=== PATIENT | female | born 2000 | race Caucasian/White ===

== ENCOUNTER 2021-02-21 01:19 | Emergency (ER) | payer OTHER, BC ==
[2021-02-21 01:29] VITALS: BP 133/83; PULSE 131; TEMP 98; BMI 21.0
[2021-02-21] MEDS ORDERED: IBUPROFEN 600 MG TABLET (FP) PO ONE ×2 (01:38→01:57)
== END 2021-02-21 02:07 | disposition home or self-care (01) ==
LOC: FER 01:19
DX: S02.2XXA Fracture of nasal bones, initial encounter for closed fracture (principal)
CPT/HCPCS: 70160-TC-FY; 99283-25